=== PATIENT | female | born 1990 | race Caucasian/White ===

== ENCOUNTER 2017-02-14 16:13 | Emergency (ER) | payer OTHER ==
[~2017-02-14] VITALS: Ht 170.2 cm; Wt 59.4 kg
--- NOTE | ~2017-02-14 | EKG ---
[address] [place] [address] ELECTROCARDIOGRAM REPORT Name: KAELA TANNER Room #: DEP HERMINIA Corley#: [id number] Admission: 02/14/17 Attend Phys: Discharge: 02/14/17 Date of : 89 Report #: [id number] THIS REPORT FOR: //name// [facility] ED Test Date: 2017-02-14 Test Time: 16:59:22 Pat Name: KAELA TANNER Department: Room: Gender: F Advanced Nursing Professor: [id number] : 1990 Requested By: Beti Loya Order Number: [id number] MD: Brendon Corrales Measurements Intervals [place] Rate: 98 P: 63 IL: 156 QRS: 73 QRSD: 79 T: 36 QT: 346 QTc: 442 Interpretive Statements Sinus rhythm Compared to ECG 06/09/2015 13:50:49 Sinus tachycardia no longer present Electronically Signed On 02-15-2017 8:43:46 CDT by Brendon Corrales [email or web address] <ELECTRONICALLY SIGNED> By: Brendon Corrales MD, [facility] 02/15/17 [id number] Brendon Corrales MD, FACC /EPI
[~2017-02-14 16:13] MED LIST: TRINESSA1 EACH PO
[2017-02-14] MEDS ORDERED: ATIVAN0.5 MG PO (16:26)
[2017-02-14] MEDS ORDERED: VENTOLIN HFA 1818 GM INH (16:26)
[2017-02-14 16:52] LABS: HEMATOCRIT 41.5 % (37.0-47.0); HEMOGLOBIN 14.4 gm/dL (12.0-15.0); MCHC 34.7 g/dL (28.0-37.0); MCV 95.3 fL (80.0-100.0); RBC 4.35 mil/uL (4.20-5.00); RDW 12.5 % (10.5-14.5); WBC 8.6 thou/uL (4.0-11.0)
[2017-02-14 17:04] LABS: CREATININE 0.7 mg/dL (0.6-1.0); MAGNESIUM 1.8 mg/dL (1.8-2.4); POTASSIUM 3.7 mmol/L (3.5-5.1)
[2017-02-14] MEDS ORDERED: XANAX 0.5 MG0.5 MG PO (17:59)
[2017-02-14 18:27] VITALS: BP 120/75
== END 2017-02-14 18:28 | disposition home or self-care (01) ==
LOC: ER 16:13
PROVIDERS: Physician Assistant
DX: F45.8 Other somatoform disorders (principal); F41.9 Anxiety disorder, unspecified; M62.838 Other muscle spasm

== ENCOUNTER 2021-05-05 14:02 | Observation (INO) | payer OTHER ==
[~2021-05-05] VITALS: Ht 172.7 cm; Wt 68.0 kg
[~2021-05-05 14:02] MED LIST changes: +ATIVAN0.5 MG PO; +VENTOLIN HFA 1818 GM INH; +XANAX 0.5 MG0.5 MG PO
[2021-05-05 14:18] VITALS: BP 149/106
[2021-05-05 14:36] LABS: URINE BILIRUBIN NEGATIVE (Negative); URINE BLOOD 3+ (Negative); URINE CLARITY CLEAR; URINE COLOR YELLOW; URINE GLUCOSE-RANDOM* NEGATIVE (Negative); URINE KETONES TRACE (Negative); URINE PROTEIN (DIPSTICK) 2+ (Negative); URINE UROBILINOGEN 0.2 E.U./dl (0.2-1.0)
[2021-05-05 14:56] LABS: URINE LEUKOCYTES-REFLEX 3+ (Negative); URINE NITRITE-REFLEX POSITIVE (Negative)
[2021-05-05 15:08] LABS: HEMATOCRIT 42.1 % (37.0-47.0); HEMOGLOBIN 13.8 gm/dL (12.0-15.0); MCH 32.6 pg (26.0-34.0); MCHC 32.8 g/dL (28.0-37.0); MCV 99.3 fL (80.0-100.0); PLATELET COUNT 340 thou/uL (150-400); RBC 4.24 mil/uL (4.20-5.00); RDW 12.8 % (10.5-14.5); WBC 15.1 thou/uL (4.0-11.0)
[2021-05-05 15:25] LABS: CASTS None Seen /LPF (None Seen); SQUAMOUS 4-10 Moderate /LPF (0-3)
[2021-05-05 15:25] LABS: CALCIUM 9.1 mg/dL (8.5-10.1); CREATININE 0.7 mg/dL (0.6-1.0); POTASSIUM 3.8 mmol/L (3.5-5.1)
[2021-05-05 15:26] LABS: BACTERIA-REFLEX >30 Many /HPF (None Seen); CRYSTALS None Seen /LPF (None Seen); URINE RBC 3-10 Few /HPF (NONE SEEN); URINE WBC-REFLEX >25 Many /HPF (0-5)
[2021-05-05 15:31] LABS: TOTAL BILIRUBIN 0.9 mg/dL (0.2-1.0); TOTAL PROTEIN 7.4 g/dL (6.4-8.2)
[2021-05-05 17:05] LABS: ABSOLUTE NEUTROPHILS 14.2 thou/uL (1.4-8.2)
[2021-05-05 17:06] LABS: PLATELET ESTIMATE NORMAL
[2021-05-05 19:39] VITALS: BP 141/93
--- NOTE | 2021-05-05 20:36 | NUR ---
REPORT CALLED TO RN ON THE FLOOR. PET CAREGIVER TO TRANSPORT PATIENT.
[2021-05-05 21:00] VITALS: BP 139/89
[2021-05-05 21:01] VITALS: BP 139/89
--- NOTE | 2021-05-06 03:07 | NUR ---
PT ARRIVED FROM ER. A&OX4 ADMISSION DONE AND PT ORIENTED TO THE UNIT. C/O LOW RT FLANK PAIN. PO HYDROCODONE GIVEN. DENIES NAUSE ON ASSESSMENT. IV INTACT AND FLUIDS INFUSING. PT UP AD IZABEL TO THE BATHROOM. SR/ST ON TELE. CALL LIGHT AT REACH AND WILL CONT TO MONITOR.
[2021-05-06 04:12] VITALS: BP 139/97
[2021-05-06 06:58] VITALS: BP 123/88
--- NOTE | 2021-05-06 09:37 | NUR ---
ASSESSMENT: CM REVIEWED CHART AND SPOKE WITH PT AT THE BEDSIDE. PT IS ALERT AND ORIENTED X4. PT WAS ADMITTED DUE TO PYLEONEPHRITIS AND TACHYCARDIA. PT REPORTS THAT SHE CURRENTLY LIVES ALONE. PT REPORTS SHE IS FULLY INDEPENDENT WITH ADLS AND AMBULATION. PT IS SHOWING PENDING COVERAGE SO CM ASKED PT ABOUT HER INSURANCE. PT REPORTS HAVING [employer] BUT JUST DOES NOT HAVE HER CARD YET AND REPORTS IT SHOULD BE ACTIVE , CONTACT# . CM NOTIFIED UR RN OF THIS INFORMATION TO GET IT VERIFIED. PT REPORTS SHE DOES NOT CURRENTLY HAVE A PCP. CM ENCOURAGED PT TO CALL THE NUMBER LISTED FOR [employer] TO GET A PROVIDER WHO IS IN NETWORK. CM ALSO PROVIDED PT WITH [facility] CONTACT INFORMATION. CM WILL CONTINUE TO FOLLOW TO ASSIST NEEDED.
--- NOTE | 2021-05-06 09:53 | NUR ---
ASSUMED PT CARE THIS AM. PT IS ALERT & ORIENTED X4. PT HAS IV SITE ON LAC RUNNING NS @150ML/HR. PT IS ON TELE MONITOR ON. PT C/O OF PAIN ON R FLANK AND GIVEN PAIN MEDICATION PER PT REQUEST. PT TOLERATED DIET WELL. NO C/O OF NAUSEA AND VOMITING. PT FRIEND AT THE BEDSIDE. PT ON THE BED, BED ON THE LOWEST POSITION, SIDE RAILS UP, CALL LIGHT WITHIN REACH. WILL CONTINUE TO MONITOR PT. FOLLOW POC.
[2021-05-06] MEDS ORDERED: LEVOFLOXACIN750 MG PO (12:29)
[2021-05-06] MEDS ORDERED: ACETAMINOPHEN325 M1 PO (12:29)
[2021-05-06 12:38] VITALS: BP 123/88
== END 2021-05-06 15:00 | disposition home or self-care (01) ==
LOC: ER 14:02 → EROBS 18:47 → 4S 18:47
PROVIDERS: Emergency Medicine; Nurse Practitioner; ADMIT Hospitalist; ATTEND Hospitalist
DX: N10 Acute pyelonephritis (principal); Z20.822 Contact with and (suspected) exposure to COVID-19; F41.9 Anxiety disorder, unspecified; J45.909 Unspecified asthma, uncomplicated; Z79.899 Other long term (current) drug therapy
CPT/HCPCS: 10100